=== PATIENT | male | born 1945 | race Caucasian/White ===

== ENCOUNTER 2017-03-06 15:17 | Inpatient (IN) | payer MEDICARE, MEDICAID ==
[~2017-03-06] VITALS: Ht 167.6 cm; Wt 65.8 kg
[2017-03-06] MEDS ORDERED: IV NS 0.9% 1,000 ML ONE (15:53)
[2017-03-06] MEDS ORDERED: IV SET PRIMARY 1 EA INFUS.SET MC ONE (15:53)
[2017-03-06 16:00] LABS: BASOPHILS % (AUTO) 0.4 % (0.0-2.0); EOSINOPHILS # (AUTO) 0.7 /CMM (0.0-0.7); EOSINOPHILS % (AUTO) 5.6 % (0.0-6.0); HEMATOCRIT 43 % (39-51); HEMOGLOBIN 14.4 g/dL (13.5-17.5); LYMPHOCYTES # (AUTO) 2.3 /CMM (0.8-4.8); MEAN CORPUSCULAR HEMOGLOBIN 31 PG (26.0-33.0); MEAN CORPUSCULAR HGB CONC 34 g/dl (31.0-36.0); MEAN CORPUSCULAR VOLUME 92 fL (80-96); MONOCYTES # (AUTO) 0.6 /CMM (0.1-1.30); MONOCYTES % (AUTO) 4.5 % (2.0-12.0); NEUTROPHILS # (AUTO) 8.7 /CMM (1.8-8.9); NEUTROPHILS % (AUTO) 70.5 % (43.0-81.0); PLATELET COUNT (AUTO) 342 /CMM (150-450); RED BLOOD CELL COUNT(AUTO) 4.66 MIL/uL (4.5-6.0); WHITE BLOOD COUNT (AUTO) 12.3 K/uL (4.3-11.0)
[2017-03-06] MEDS ORDERED: IV NS 0.9% 1,000 ML BAG IV ONE (16:00)
[2017-03-06] MEDS ORDERED: TAMS-12 PO (16:04)
[2017-03-06] MEDS ORDERED: ACET-868 PO (16:04)
[2017-03-06] MEDS ORDERED: DOCU-25 PO (16:04)
[2017-03-06] MEDS ORDERED: NA P133E RC (16:04)
[2017-03-06] MEDS ORDERED: BISA10SU8 RC (16:04)
[2017-03-06] MEDS ORDERED: ACET-2605 PO (16:04)
[2017-03-06] MEDS ORDERED: CARB-93 PO (16:04)
[2017-03-06] MEDS ORDERED: CRAN425C PO (16:04)
[2017-03-06] MEDS ORDERED: HYDR-552 PO (16:04)
[2017-03-06] MEDS ORDERED: GLIP10TA11 PO (16:04)
[2017-03-06] MEDS ORDERED: MAGN400O6 PO (16:04)
[2017-03-06] MEDS ORDERED: METF10002 PO (16:04)
[2017-03-06] MEDS ORDERED: LISI-603 PO (16:04)
[2017-03-06] MEDS ORDERED: INSU300I SQ (16:04)
--- NOTE | 2017-03-06 16:07 | NUR ---
PATIENT ASSIGNED TO 325-2 DX DEHYDRATION
[2017-03-06 16:10] LABS: CALCIUM, SERUM 8.5 mg/dL (8.5-10.1); CREATININE 0.8 mg/dL (0.6-1.3); POTASSIUM 3.5 mmol/L (3.5-5.1)
[2017-03-06 16:14] LABS: INR 1.05 (0.87-1.13); PROTHROMBIN TIME 10.9 SECS (9.5-12.7)
[2017-03-06 16:22] LABS: BILIRUBIN,DIRECT 0.4 mg/dL (0.0-0.2); BILIRUBIN,TOTAL 0.9 mg/dL (0.2-1.0)
[2017-03-06] MEDS ORDERED: NA PHOS,M-B/NA PHOS,DI-BA 1 EA ENEMA RC PRN (17:00)
[2017-03-06] MEDS ORDERED: ONDANSETRON HCL/PF 4 MG/2 ML VIAL IVP PRN (17:00)
[2017-03-06] MEDS ORDERED: DEXTROSE 50%-WATER 50 ML DISP.SYRIN IV PRN (17:00)
[2017-03-06] MEDS: CARBIDOPA/LEVODOPA 25/100 MG 1 UDTAB PO SCH (17:00)
[2017-03-06] MEDS ORDERED: Z GUARD REMEDY 2 OZ OINT TP PRN (17:00)
[2017-03-06] MEDS ORDERED: ACETAMINOPHEN 325 MG TABLET PO PRN (17:00)
[2017-03-06] MEDS ORDERED: BISACODYL SUPP (10 MG) 10 MG/SUPP.RECT SUPP.RECT RC PRN (17:00)
[2017-03-06] MEDS ORDERED: MAG HYDROX/AL HYDROX/SIMETH 30 ML UDC PO PRN (17:00)
[2017-03-06] MEDS ORDERED: HYDROCODONE/APAP 5/325MG 1 EACH TABLET PO PRN (17:00)
[2017-03-06] MEDS ORDERED: MAGNESIUM HYDROXIDE 30 ML UDC PO PRN (17:00)
--- NOTE | 2017-03-06 17:00 | NUR ---
RN MS NOTES RECEIVED PATIENT FROM E.R. DEPARTMENT, NON-VERBAL, UNDER THE CARE OF JULIO LEONARD, WITH ADMITTING DIAGNOSIS OF POSSIBLE PEG PLACEMENT, NEEDS ATTENDED, NO DISTRESS NOR SOB NOTED, SKIN ASSESSMENT COMPLETED, NOTED WITH SACRAL WOUND, PHOTO TAKEN AND PLACED IN CHART, PATIENT POSITIONED PROPERLY FOR COMFORT AND SAFETY, CALL LIGHT PLACED WITHIN REACH, WILL CONTINUE TO MONITOR.
[2017-03-06] MEDS ORDERED: IV SET PRIMARY PUMP SET 1 EA INFUS.SET MC ONE (17:16)
[2017-03-06] MEDS: IV NS 0.9% 1,000 ML IV PRN (17:25)
[2017-03-06] MEDS: BLOOD SUGAR DIAGNOSTIC 1 EACH STRIP IN SCH ×2 (17:26→22:19)
[2017-03-06 17:30] VITALS: BP 140/79
[2017-03-06] MEDS: INSULIN REGULAR, HUMAN 100 UNIT/ML 3 ML VIAL SQ PRN ×2 (17:49→22:28)
--- NOTE | 2017-03-06 19:40 | NUR ---
MS/RN OPENING NOTES PT RECEIVED RESTING IN BED, NON VERBAL, OPENS EYES. ON ROOM AIR, BREATHING EVEN AND UNLABORED. NO FACIAL GRIMACING OR SIGNS OF DISTRESS NOTED. WOUND CONSULT ORDERED FOR SACRAL WOUND. IV TO RAC RUNNING IVF ORDERED, NO S/S OF INFILTRATION NOTED. BED IN LOW/LOCKED POSITION, CALL LIGHT IN REACH. BED RAILS UP AND EXTREMITIES OFFLOADED .WILL CONTINUE TO MONITOR
--- NOTE | 2017-03-06 19:49 | NUR ---
RN MS NOTES HOB ELEVATED, IV HYDRATION INFUSING AT 75ML/HR, VITAL SIGNS STABLE, SACRAL WOUND CLEANSED WITH NS, PAT DRY AND APPLIED MEPILEX AT THIS TIME, RECEIVED NEW ORDERS FROM [facility], ALL ORDERS NOTED AND CARRIED OUT,WILL ENDORSE TO APARTMENT LEASING CONSULTANT FOR VENKATESH.
[2017-03-06 20:00] VITALS: BP 124/84
[2017-03-06] MEDS ORDERED: FEE PK DOSING 1 MIN EA MC ONE (20:16)
[2017-03-06] MEDS: TAMSULOSIN 0.4 MG CAP.SR.24H PO SCH (22:00)
[2017-03-06] MEDS: DOCUSATE SODIUM 100 MG CAPSULE PO SCH (22:00)
[2017-03-06] MEDS: VANCOMYCIN 1 GM in IV D5W 250 ML IV SCH (22:19)
[2017-03-06] MEDS ORDERED: SECONDARY IV SET 1 EA INFUS.SET MC ONE (22:20)
--- NOTE | 2017-03-06 22:27 | NUR ---
MS/RN NOTES BLOOD BXKTI=[id number], NO INSULIN ADMINISTERED. PT IS NPO
[2017-03-07] MEDS ORDERED: SECONDARY IV SET 1 EA INFUS.SET MC ONE ×2 (00:49→13:17)
[2017-03-07] MEDS: PIPERACILLIN /TAZOBACTAM 3.375 G in IV D5W 50 ML IV SCH ×4 (00:54→20:00)
--- NOTE | 2017-03-07 02:48 | NUR ---
MS/RN NOTES WOUND CULTURE COLLECTED FROM [facility]. CALLED LAB TO ELECTRICIAN MAINTENANCE SPECIMEN
[2017-03-07] MEDS: BLOOD SUGAR DIAGNOSTIC 1 EACH STRIP IN SCH ×4 (07:02→21:37)
[2017-03-07] MEDS: PANTOPRAZOLE 40 MG TABLET.DR PO SCH (07:02)
--- NOTE | 2017-03-07 07:05 | NUR ---
MS/RN NOTES BLOOD EGERO=572, NO INSULIN ADMINISTERED. PT IS NPO STATUS.
--- NOTE | 2017-03-07 07:30 | NUR ---
MS/RN OPENING NOTE PT. IS IN BED, SLEEPING. PT. OPENS EYES TO LIGHT TOUCH, IS NON-VERBAL. PT. HAS NO S/S OF DISTRESS, OR SOB. PT. IS IN STABLE CONDITION, NO S/S OF DISTRESS. PT. HAS A RIGHT ANTECUBITAL IV ACCESS WITH IV FLUIDS INFUSING AT 75ML/HR. BED IS IN LOW POSITION, 2 SIDE RAILS UP, AND WILL CONTINUE TO MONITOR PT.
--- NOTE | 2017-03-07 07:40 | NUR ---
MS/RN CLOSING NOTES PT REMAINS NON VERBAL, OPENS EYES. ON ROOM AIR, BREATHING EVEN AND UNLABORED. NO FACIAL GRIMACING OR SIGNS OF DISTRESS NOTED. SACRAL WOUND CULTURE COLLECTED. IV TO RAC RUNNING IVF ORDERED, NO S/S OF INFILTRATION NOTED. PT'S LOWER EXTREMITIES REMAIN CONTRACTED. NO PO PM MEDICATIONS ADMINISTERED DUE TO NPO STATUS. TURNED/REPOSITIONED PT Q2H, OFFLOADED. BED IN LOW/LOCKED POSITION, CALL LIGHT IN REACH. BED RAILS UP. KCI MATTRESS NEEDED. ENDORSED TO AM SHIFT VENKATESH.
[2017-03-07 07:42] LABS: BASOPHILS % (AUTO) 0.3 % (0.0-2.0); EOSINOPHILS # (AUTO) 0.8 /CMM (0.0-0.7); EOSINOPHILS % (AUTO) 6.8 % (0.0-6.0); HEMATOCRIT 39 % (39-51); HEMOGLOBIN 13.6 g/dL (13.5-17.5); LYMPHOCYTES # (AUTO) 1.8 /CMM (0.8-4.8); LYMPHOCYTES % (AUTO) 15.3 % (20.0-44.0); MEAN CORPUSCULAR HEMOGLOBIN 31 PG (26.0-33.0); MEAN CORPUSCULAR HGB CONC 34 g/dl (31.0-36.0); MEAN CORPUSCULAR VOLUME 91 fL (80-96); MONOCYTES # (AUTO) 0.8 /CMM (0.1-1.30); MONOCYTES % (AUTO) 6.7 % (2.0-12.0); NEUTROPHILS # (AUTO) 8.3 /CMM (1.8-8.9); NEUTROPHILS % (AUTO) 70.9 % (43.0-81.0); PLATELET COUNT (AUTO) 322 /CMM (150-450); RED BLOOD CELL COUNT(AUTO) 4.32 MIL/uL (4.5-6.0); WHITE BLOOD COUNT (AUTO) 11.7 K/uL (4.3-11.0)
[2017-03-07 07:54] LABS: CALCIUM, SERUM 8.2 mg/dL (8.5-10.1); CREATININE 0.7 mg/dL (0.6-1.3); MAGNESIUM 1.5 mg/dL (1.8-2.4); PHOSPHORUS 3.2 mg/dL (2.5-4.9)
[2017-03-07 08:00] VITALS: BP 118/67
[2017-03-07 08:00] LABS: THYROID STIMULATING HORMONE 1.091 uIU/mL (0.358-3.74)
[2017-03-07] MEDS: VANCOMYCIN 1 GM in IV D5W 250 ML IV SCH ×2 (08:49→21:24)
[2017-03-07] MEDS: LISINOPRIL (20MG) 20 MG TABLET PO SCH (08:51)
[2017-03-07] MEDS: CARBIDOPA/LEVODOPA 25/100 MG 1 UDTAB PO SCH ×3 (08:51→17:00)
[2017-03-07] MEDS ORDERED: [UNRECOGNIZED DRUG - OTHER] SQ SCH (09:00)
[2017-03-07] MEDS ORDERED: INSULIN GLARGINE HUM REC ANLOG 10 UNIT SQ SCH (09:00)
--- NOTE | 2017-03-07 10:45 | NUR ---
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 PT INCONTINENT. FIRST STEP MATTRESS ORDERED. ALL SKIN PROTECTION AND WOUND RECOMMENDATIONS DISCUSSED WITH NURSING STAFF. SURGICAL CONSULT CALLED BY . WILL SEE PRN. TEE IN AGREEMENT WITH PLAN OF CARE. Addendum: 03/07/17 at 1047 by YARON KO WNDNU Amended: Links added.
[2017-03-07] MEDS ORDERED: HYDROGEL DRESSING 90 GM TUBE TP PRN (11:00)
[2017-03-07] MEDS: INSULIN REGULAR, HUMAN 100 UNIT/ML 3 ML VIAL SQ PRN (12:51)
--- NOTE | 2017-03-07 12:52 | NUR ---
KORY 187 HELD INSULIN PT. IS NPO AT THIS TIME.
[2017-03-07] MEDS: HYDROGEL DRESSING 90 GM TUBE TP SCH (12:54)
[2017-03-07] MEDS ORDERED: IV SET PRIMARY PUMP SET 1 EA INFUS.SET MC ONE ×2 (13:33→14:10)
[2017-03-07] MEDS: POTASSIUM CL. PREMIX PERIPHER. 50 ML IV SCH ×6 (14:08→22:37)
[2017-03-07] MEDS: Magnesium 1GM/D5W 100ML PREMIX 100 ML IV SCH ×2 (14:19→15:31)
[2017-03-07 16:00] VITALS: BP 118/71
[2017-03-07] MEDS: LACTOBACILLUS RHAMNOSUS GG 1 EACH CAP.SPRINK GT SCH (17:00)
--- NOTE | 2017-03-07 18:00 | NUR ---
MS/RN BLOOD SUGAR AT 1200 WAS 187, AND AT 1800, 207. INSULIN WAS HELD DUE TO PT. BEING ON NPO.
--- NOTE | 2017-03-07 19:35 | NUR ---
RN OPEN NOTES PER LUIS DUQUE L/M FOR CONSENT FOR AM PROCEDURE AND AWAITING CALL BACK. RECEIVED PATIENT AWAKE IN BED. PT IS NON-VERBAL WITH EYE OPENING. NO SIGNS OF DISTRESS OR DISCOMFORT. BREATHING EVEN AND UNLABORED. IV ACCESS RAC AND L WRIST WITH KCL CURRENTLY INFUSING, PATENT AND INTACT, NO SIGNS OF REDNESS OR INFILTRATION. BED IN LOW LOCKED POSITION WITH SIDE RAILS X2. CALL LIGHT WITHIN REACH. WILL CONTINUE TO MONITOR.
--- NOTE | 2017-03-07 19:40 | NUR ---
MS/RN CLOSING NOTE PT. IS IN BED AWAKE. NO S/S OF DISTRESS, NO SOB, BREATHING IS EVEN AND UNLABORED, IN STABLE CONDITION. PT. BED IS IN LOW POSITION, 2 SIDE RAILS UP. LEFT MESSAGE FOR GUILHERME WITH [address] [place] [address] CALL BACK NUMBER IN REGARDS TO A CONSENT FOR WOUND DEBRIDEMENT AND EDG WITH JPEG PLACEMENT. WILL ENDORSE REPORT TO SERVICE STATION ATTENDANT NURSE REGARDING PT. CONSENT FORMS, AND LONG ACTING INSULIN TOUJEO.
[2017-03-07 20:00] VITALS: BP 138/77
--- NOTE | 2017-03-07 21:00 | NUR ---
RN NOTES L/M FOR GUILHERME AT [phone] REGARDING CONSENT FOR EGD WITH PEG PLACEMENT AND SACRAL WOUND DEBRIDEMENT. WILL CONTINUE TO MONITOR.
[2017-03-07] MEDS: DOCUSATE SODIUM 100 MG CAPSULE PO SCH (22:00)
[2017-03-07] MEDS: TAMSULOSIN 0.4 MG CAP.SR.24H PO SCH (22:00)
--- NOTE | 2017-03-07 22:30 | NUR ---
RN NOTES L/M FOR GUILHERME AT [phone], REGRADING CONSENT FOR PROCEDURE, ANESTHESIA AND BLOOD PRODUCTS FOR SCHEDULED AM PROCEDURES. WILL CONTINUE TO MONITOR.
[2017-03-07] MEDS: IV NS 0.9% 1,000 ML IV PRN (22:43)
--- NOTE | 2017-03-08 | NUR ---
RN NOTES NOTIFIED HAND CROWN POUNCER MD THAT IM UNABLE TO OBTAIN CONSENT FOR EGD WITH PEG PLACEMENT PROCEDURE SCHEDULED FOR TOMORROW AM AFTER SEVERAL ATTEMPTS, PER MD HE DOES NOT FEEL COMFORTABLE SIGNING CONSENT IT IS TO BE SIGNED BY THE MD DOING ROUNDS IN THE AM.
[2017-03-08] MEDS: PIPERACILLIN /TAZOBACTAM 3.375 G in IV D5W 50 ML IV SCH ×4 (00:56→19:09)
--- NOTE | 2017-03-08 06:50 | NUR ---
RN NOTES SPOKE WITH JOANNE IN OR, INFORMED CONSENT IS NOT SIGNED FOR PROCEDURE THIS AM. WILL CONTINUE TO MONITOR.
--- NOTE | 2017-03-08 07:15 | NUR ---
RN NOTES DR. MONTENEGRO IN TO SEE PATIENT, AWARE CONSENT HAS NOT BEEN SIGNED FOR PROCEDURE. PATIENT RESTING IN BED. NO SIGNS OR SYMPTOMS OF DISTRESS. BREATHING EVEN AND UNLABORED. IV ACCESS IN L WRIST, PATENT AND INTACT, NO SIGNS OF REDNESS OR INFILTRATION. ALL NEEDS MET. NO SIGNIFICANT CHANGES THROUGH THE NIGHT. REPOSITIONED Q2H. BED IN LOW LOCKED POSITION WITH SIDE RAILS X2. CALL LIGHT WITHIN REACH. WILL ENDORSE TO AM SHIFT FOR VENKATESH.
[2017-03-08] MEDS: PANTOPRAZOLE 40 MG TABLET.DR PO SCH (07:30)
[2017-03-08] MEDS: BLOOD SUGAR DIAGNOSTIC 1 EACH STRIP IN SCH ×4 (07:30→22:12)
--- NOTE | 2017-03-08 07:30 | NUR ---
MS RN RECEIVED ON BED, NONVERBAL PATIENT. NOT IN ANY FORM OF DISTRESS, RESPIRATIONS EVEN AND UNLABORED,NO SOB NOTED, RECEIVED W/O CONSENT FOR EGD W/ PEG PLACEMENT, WILL FOLLOW UP.
--- NOTE | 2017-03-08 07:40 | NUR ---
MS RN OR NURSE JOANNE, CALLED FOR CONSENT, WILL CONTACT NEXT OF KIN.
[2017-03-08 08:00] VITALS: BP 121/70
--- NOTE | 2017-03-08 08:00 | NUR ---
MS RN CALLED NEXT OF KIN, NOBODY ANSWER, LEFT MESSAGE TO CALL BACK.
--- NOTE | 2017-03-08 08:40 | NUR ---
MS RN CALLED SNF, WAS ABLE TO TALK W/ MEDICAL RECORDS,THEY ONLY HAVE WHAT'S IN THE CHART, NO OTHER NEXT OF KIN, AWARE.
[2017-03-08 08:54] LABS: CREATININE 0.7 mg/dL (0.6-1.3); MAGNESIUM 1.7 mg/dL (1.8-2.4); POTASSIUM 3.7 mmol/L (3.5-5.1)
[2017-03-08] MEDS: LACTOBACILLUS RHAMNOSUS GG 1 EACH CAP.SPRINK GT SCH ×2 (09:00→16:57)
[2017-03-08] MEDS: LISINOPRIL (20MG) 20 MG TABLET PO SCH (09:00)
[2017-03-08] MEDS: CARBIDOPA/LEVODOPA 25/100 MG 1 UDTAB PO SCH ×3 (09:00→17:00)
[2017-03-08] MEDS: VANCOMYCIN 1 GM in IV D5W 250 ML IV SCH ×2 (09:45→22:12)
--- NOTE | 2017-03-08 10:20 | NUR ---
MS LUIS HASTINGS CAME TO SEE PATIENT , LEFT MESSAGE ALSO TO THE NEXT OF KIN INDICATED IN THE CHART, BUT NEVER CALLED BACK.
[2017-03-08] MEDS: INSULIN DETEMIR 100 UNIT/ML CARTRIDGE SQ SCH (10:30)
[2017-03-08] MEDS: Magnesium 1GM/D5W 100ML PREMIX 100 ML IV SCH ×4 (12:22→18:22)
--- NOTE | 2017-03-08 12:30 | NUR ---
MS RN BS - 246 - DID NOT GIVE COVERAGE, PATIENT IS NOT EATING AT ALL.
[2017-03-08 16:00] VITALS: BP 111/66
[2017-03-08] MEDS: ENOXAPARIN SODIUM 30 MG/0.3 ML DISP.SYRIN SQ SCH ×2 (16:00→17:05)
[2017-03-08] MEDS ORDERED: SECONDARY IV SET 1 EA INFUS.SET MC ONE ×2 (16:51→22:12)
[2017-03-08] MEDS: HYDROGEL DRESSING 90 GM TUBE TP SCH (17:13)
[2017-03-08] MEDS: IV NS 0.9% 1,000 ML IV PRN (17:30)
--- NOTE | 2017-03-08 17:30 | NUR ---
MS RN BS - 217 - DID NOT GAVE COVERAGE, NOT EATING CHARGE NURSE IS AWARE.
--- NOTE | 2017-03-08 18:30 | NUR ---
MS RN PATIENT ON BED, NO DISTRESS NOTED.
--- NOTE | 2017-03-08 19:30 | NUR ---
RN NOTES RECEIVED PT. AWAKE, NON-VERBAL, IV FLUID RUNNING @ 75ML/HR, NO PAIN NOTED, NO SOB, SIDERAILS UPX2 CONTINUE TO MONITOR
[2017-03-08 20:00] VITALS: BP 131/83
--- NOTE | 2017-03-08 21:00 | NUR ---
RN NOTES CALLED PT. FAMILY TO GET A CONSENT- NOBODY ANSWERING THE PHONE
[2017-03-08] MEDS: DOCUSATE SODIUM 100 MG CAPSULE PO SCH (22:00)
[2017-03-08] MEDS: TAMSULOSIN 0.4 MG CAP.SR.24H PO SCH (22:00)
--- NOTE | 2017-03-08 22:00 | NUR ---
RN NOTES BLOOD SUGAR-221; NO COVERAGE GIVEN PT. IS NPO
[2017-03-09] MEDS: PIPERACILLIN /TAZOBACTAM 3.375 G in IV D5W 50 ML IV SCH ×5 (00:41→23:25)
--- NOTE | 2017-03-09 06:32 | NUR ---
RN NOTES MORNING CARE RENDERED, NO PAIN NOTED, NO SOB, SIDERAILS UPX2 PT. NEEDS ATTENDED. ENDORSED TO DAYSHIFT NURSE FOR CONTINUITY OF CARE
--- NOTE | 2017-03-09 07:25 | NUR ---
MS RN OPENING NOTES RECEIVED PT. FROM DAY SHIFT NURSE IN STABLE CONDITION. PT. IS NON VERBAL. IV ON LEFT WRIST INTACT AND PATENT RUNNING NS @ 75ML. PT. TOLERATING INFUSION WELL. NO SOB OR SIGNS OF DISTRESS NOTED. WILL CONTINUE TO MONITOR.
[2017-03-09] MEDS: PANTOPRAZOLE 40 MG TABLET.DR PO SCH (07:30)
[2017-03-09 08:00] VITALS: BP 111/71
[2017-03-09 08:20] LABS: BASOPHILS % (AUTO) 0.3 % (0.0-2.0); EOSINOPHILS # (AUTO) 0.4 /CMM (0.0-0.7); EOSINOPHILS % (AUTO) 3.4 % (0.0-6.0); HEMATOCRIT 40 % (39-51); HEMOGLOBIN 13.4 g/dL (13.5-17.5); LYMPHOCYTES # (AUTO) 1.3 /CMM (0.8-4.8); LYMPHOCYTES % (AUTO) 12.7 % (20.0-44.0); MEAN CORPUSCULAR HEMOGLOBIN 31 PG (26.0-33.0); MEAN CORPUSCULAR HGB CONC 34 g/dl (31.0-36.0); MEAN CORPUSCULAR VOLUME 92 fL (80-96); NEUTROPHILS # (AUTO) 7.8 /CMM (1.8-8.9); NEUTROPHILS % (AUTO) 74.6 % (43.0-81.0); PLATELET COUNT (AUTO) 279 /CMM (150-450); RDW COEFFICIENT OF VARIATION 13.2 (11.5-15.0); RED BLOOD CELL COUNT(AUTO) 4.29 MIL/uL (4.5-6.0); WHITE BLOOD COUNT (AUTO) 10.5 K/uL (4.3-11.0)
[2017-03-09 08:48] LABS: CALCIUM, SERUM 8.1 mg/dL (8.5-10.1); CREATININE 1.3 mg/dL (0.6-1.3); MAGNESIUM 2.1 mg/dL (1.8-2.4); PHOSPHORUS 3.3 mg/dL (2.5-4.9); POTASSIUM 3.6 mmol/L (3.5-5.1)
[2017-03-09] MEDS: INSULIN DETEMIR 100 UNIT/ML CARTRIDGE SQ SCH (09:00)
[2017-03-09] MEDS: CARBIDOPA/LEVODOPA 25/100 MG 1 UDTAB PO SCH ×3 (09:00→16:38)
[2017-03-09] MEDS: LISINOPRIL (20MG) 20 MG TABLET PO SCH (09:00)
[2017-03-09] MEDS: LACTOBACILLUS RHAMNOSUS GG 1 EACH CAP.SPRINK GT SCH ×2 (09:00→16:38)
[2017-03-09] MEDS: BLOOD SUGAR DIAGNOSTIC 1 EACH STRIP IN SCH ×4 (09:38→21:28)
[2017-03-09] MEDS: HYDROGEL DRESSING 90 GM TUBE TP SCH (09:41)
[2017-03-09] MEDS: VANCOMYCIN 1 GM in IV D5W 250 ML IV SCH (09:49)
--- NOTE | 2017-03-09 11:01 | NUR ---
JOSE contacted [facility] and spoke to the facility social problems specialist Angela inquiring if pt. has any family that has been visiting him and a phone number. JOSE Miller informed JOSE that the only friend that was visiting pt. was Ania Yadav and she hasn't visited with him in a long time. JOSE called Ania Yadav and left her a voicemail message requesting a call back.
--- NOTE | 2017-03-09 12:25 | NUR ---
MS RN NOTES GUILHERME SILVERIO (SERGING MACHINE OPERATOR) WAS CONTACTED IN REGARDS TO CONSENT FOR PEG TUBE PLACEMENT. A VOICEMAIL WAS LEFT ASKING THE SHE RETURN MY CALL. DR. MAGAN HASTINGS WAS MADE AWARE OF THIS AND STATES THAT HE WILL CONTINUE TO WORK ON THE CASE
[2017-03-09 16:00] VITALS: BP 133/80
[2017-03-09] MEDS: ENOXAPARIN SODIUM 30 MG/0.3 ML DISP.SYRIN SQ SCH (16:38)
[2017-03-09] MEDS: IV NS 0.9% 1,000 ML IV PRN (17:34)
--- NOTE | 2017-03-09 18:55 | NUR ---
MS RN CLOSING NOTES PT IN STABLE CONDITION. PT. IS NON VERBAL. IV ON LEFT WRIST INTACT AND PATENT RUNNING NS @ 75ML. PT. TOLERATING INFUSION WELL. NO SOB OR SIGNS OF DISTRESS NOTED. ALL PT. NEEDS MET AND ORDERS CARRIED OUT APPROPRIATELY. WILL ENDORSE TO NIGHTSHIFT NURSE FOR VENKATESH
--- NOTE | 2017-03-09 19:30 | NUR ---
MS RN OPENING NOTES: PATIENT IN BED, AWAKENS SPONTANEOUSLY TO TOUCH/ NAME BEING CALLED, BUT IS NON VERBAL. ON ROOM AIR, BREATHING EVEN AND UNLABORED. BREATH SOUNDS CLEAR TO AUSCULTATION. PIV OVER R HAND G 22 INTACT AND PATENT, INFUSING WELL WITH NS RUNNING AT 75 ML/HR. MAINTAINED HOB ELEVATED. BED IN LOWEST AND LOCKED POSITION, SIDERAILS UP X3, BED ALARM ON. MAINTAINED ON NPO, PATIENT IS POSSIBLY FOR PEG TUBE PLACEMENT. WILL CONT TO MONITOR.
[2017-03-09 20:00] VITALS: BP 119/69
[2017-03-09 20:08] VITALS: BP 119/69
[2017-03-09] MEDS: VANCOMYCIN 0.75 GM in IV D5W 250 ML IV SCH (21:27)
[2017-03-09] MEDS: MUPIROCIN OINT 2% 22 GM TUBE SCH (21:27)
[2017-03-09] MEDS: TAMSULOSIN 0.4 MG CAP.SR.24H PO SCH (21:29)
[2017-03-09] MEDS: DOCUSATE SODIUM 100 MG CAPSULE PO SCH (21:29)
[2017-03-09] MEDS: INSULIN REGULAR, HUMAN 100 UNIT/ML 3 ML VIAL SQ PRN (21:31)
[2017-03-09 22:00] VITALS: BP 119/69
--- NOTE | 2017-03-09 22:30 | NUR ---
RN NOTES: PATIENT'S BLOOD SUGAR CHECKED AT 201 MG/DL, NO INSULIN COVERAGE GIVEN PATIENT IS NPO. WILL CONT TO MONITOR.
[2017-03-10] MEDS: PIPERACILLIN /TAZOBACTAM 3.375 G in IV D5W 50 ML IV SCH ×2 (05:45→13:01)
[2017-03-10] MEDS: INSULIN REGULAR, HUMAN 100 UNIT/ML 3 ML VIAL SQ PRN ×2 (06:48→21:46)
[2017-03-10] MEDS: BLOOD SUGAR DIAGNOSTIC 1 EACH STRIP IN SCH ×4 (06:48→21:43)
--- NOTE | 2017-03-10 07:26 | NUR ---
MS RN CLOSING NOTES: PATIENT IN BED, AWAKE, NON VERBAL, OPENS EYES SPONTANEOUSLY TO NAME BEING CALLED. BLOOD USGAR CHECEKED AT 194 MG/DL, PT IS ON NPO, NO INSULIN COVERAGE GIVEN. PIV OVER R HAND G 22 INTACT AND PATENT, INFUSING WELL WITH NS RUNNING AT 75 ML/HR. DUE MEDS GIVEN. TURNED ANND REPOSITIONED PATIENT. WOUND DRESSING DONE OVER SACRAL AREA: CLEANSED WITH NS, PATTED DRY, APPLIED HYDROGEL, AND PROTECTED WITH MEPILEX. TURNED NAD REPOSITIONED Q 2 HRS. NO ACUTE CHANGE IN CONDITION NOTED THROUGH SHIFT. PROVIDED FOR COMFORT AND SAFETY. BED IN LOWEST NAD LOCKED POSITION, SIDERAILS UP X3. WILL ENDORSE TO AM RN FOR VENKATESH.
[2017-03-10] MEDS: PANTOPRAZOLE 40 MG TABLET.DR PO SCH (07:30)
[2017-03-10 07:32] LABS: BASOPHILS # (AUTO) 0.1 /CMM (0.0-0.2); BASOPHILS % (AUTO) 0.6 % (0.0-2.0); EOSINOPHILS # (AUTO) 0.6 /CMM (0.0-0.7); EOSINOPHILS % (AUTO) 5.9 % (0.0-6.0); HEMATOCRIT 38 % (39-51); HEMOGLOBIN 12.8 g/dL (13.5-17.5); LYMPHOCYTES # (AUTO) 1.8 /CMM (0.8-4.8); LYMPHOCYTES % (AUTO) 19.4 % (20.0-44.0); MEAN CORPUSCULAR HEMOGLOBIN 31 PG (26.0-33.0); MEAN CORPUSCULAR HGB CONC 34 g/dl (31.0-36.0); MEAN CORPUSCULAR VOLUME 91 fL (80-96); MONOCYTES # (AUTO) 0.7 /CMM (0.1-1.30); MONOCYTES % (AUTO) 7.2 % (2.0-12.0); NEUTROPHILS # (AUTO) 6.4 /CMM (1.8-8.9); NEUTROPHILS % (AUTO) 66.9 % (43.0-81.0); PLATELET COUNT (AUTO) 275 /CMM (150-450); RED BLOOD CELL COUNT(AUTO) 4.13 MIL/uL (4.5-6.0); WHITE BLOOD COUNT (AUTO) 9.5 K/uL (4.3-11.0)
[2017-03-10 08:00] VITALS: BP 129/70
[2017-03-10 08:00] LABS: CALCIUM, SERUM 8.1 mg/dL (8.5-10.1); CREATININE 1.3 mg/dL (0.6-1.3); POTASSIUM 3.4 mmol/L (3.5-5.1)
[2017-03-10] MEDS: CARBIDOPA/LEVODOPA 25/100 MG 1 UDTAB PO SCH ×3 (09:00→16:36)
[2017-03-10] MEDS: INSULIN DETEMIR 100 UNIT/ML CARTRIDGE SQ SCH (09:00)
[2017-03-10] MEDS: LACTOBACILLUS RHAMNOSUS GG 1 EACH CAP.SPRINK GT SCH ×2 (09:00→16:36)
[2017-03-10] MEDS: LISINOPRIL (20MG) 20 MG TABLET PO SCH (09:00)
[2017-03-10] MEDS: MUPIROCIN OINT 2% 22 GM TUBE SCH ×2 (09:05→21:43)
[2017-03-10] MEDS: HYDROGEL DRESSING 90 GM TUBE TP SCH (09:06)
[2017-03-10] MEDS: VANCOMYCIN 0.75 GM in IV D5W 250 ML IV SCH (09:15)
[2017-03-10] MEDS ORDERED: SECONDARY IV SET 1 EA INFUS.SET MC ONE ×2 (12:55→21:44)
[2017-03-10] MEDS ORDERED: IV SET PRIMARY PUMP SET 1 EA INFUS.SET MC ONE (14:33)
[2017-03-10] MEDS: IV 1/2NS 1000 ML 1,000 ML IV PRN (14:44)
[2017-03-10] MEDS: POTASSIUM CL. PREMIX PERIPHER. 50 ML IV SCH ×2 (14:44→15:53)
[2017-03-10 16:00] VITALS: BP 129/77
[2017-03-10] MEDS: ENOXAPARIN SODIUM 30 MG/0.3 ML DISP.SYRIN SQ SCH (16:22)
[2017-03-10] MEDS ORDERED: LEVOFLOXACIN (500MG) 500 MG TABLET PO SCH (17:00)
[2017-03-10] MEDS: ACIDOPHILUS/BULGARICUS 1 EACH TAB.CHEW PO SCH (17:00)
--- NOTE | 2017-03-10 17:42 | NUR ---
MS RN NOTES 1700 LEVAQUIN WAS NOT ADMINISTERED BECAUSE PT. IS NPO. ELIZABETH THE LAST MODEL MAKER WAS NOTIFIED AND SAID SHE WILL CHANGE IT TO AN IV FORM.
--- NOTE | 2017-03-10 18:58 | NUR ---
MS RN CLOSING NOTES PT. IN STABLE CONDITION. RESPONDS TO TOUCH BUT IS NON VERBAL. IV ON LEFT WRIST INTACT AND PATENT RUNNING 1/2 NS @ 75ML. PT. TOLERATING INFUSION WELL. NO SOB OR SIGNS OF DISTRESS NOTED. PT. WAS TURNED AND REPOSITIONED EVERY TWO HOURS. ALL SAFETY MEASURES WERE ENFORCED AND NEEDS MET. ALL ORDERS WERE CARRIED OUT ACCORDINGLY THROUGHOUT SHIFT. WILL ENDORSE TO NIGHTSHIFT NURSE FOR VENKATESH
--- NOTE | 2017-03-10 19:30 | NUR ---
RN OPENING NOTES: PATIENT IN BED, AWAKE, BUT NON VERBAL, ON ROOM AIR, BREATHING EVEN AND UNLABORED. APPEARS CALM AND IN NO APPARENT DISTRESS. PIV OVER R HAND G22 INTACT AND PATENT, INFUSING WELL WITH NS RUNNING AT 75 ML /HR. MAINTAINED ON NPO, FOR PEG TUBE PLACEMENT, PENDING. PROVIDED FOR COMFORT AND SAFETY. BED IN LOWEST AND LOCKED POSITION, SIDERAILS UP X3. BED ALARMS ON. TURNED AND REPOSITIONED. WILL CONT TO MONITOR. Addendum: 03/11/17 at 0010 by OLIVA THOMAS RN ON IVF OF 1/2 NS RUNNING AT 75 ML/HR.
[2017-03-10 20:00] VITALS: BP 130/86
[2017-03-10 20:10] VITALS: BP 130/86
--- NOTE | 2017-03-10 20:17 | NUR ---
Patient resides at [facility] [phone]. He requires assistance with adl's, plan is to d/c patient back to SNF Addendum: 03/10/17 at 2017 by MAHI MCCRACKEN RN Amended: Links added.
[2017-03-10] MEDS: DOCUSATE SODIUM 100 MG CAPSULE PO SCH (21:43)
[2017-03-10] MEDS: LEVOFLOXACIN 500 MG /D5W 100ML 500 MG in PREMIX 1 EA IV SCH (21:43)
[2017-03-10] MEDS: TAMSULOSIN 0.4 MG CAP.SR.24H PO SCH (21:43)
--- NOTE | 2017-03-10 22:00 | NUR ---
RN NOTES: PATIENT'S BLOOD SUGAR CHECKED AT 150 MG/DL. NO INSULIN GIVEN PATIENT IS NPO. WILL CONT TO MONITOR.
[2017-03-11] MEDS: IV 1/2NS 1000 ML 1,000 ML IV PRN ×2 (05:16→20:17)
[2017-03-11] MEDS: BLOOD SUGAR DIAGNOSTIC 1 EACH STRIP IN SCH ×4 (06:39→21:15)
[2017-03-11] MEDS: INSULIN REGULAR, HUMAN 100 UNIT/ML 3 ML VIAL SQ PRN (06:40)
--- NOTE | 2017-03-11 07:00 | NUR ---
MS RN CLOSING NOTES: PATIENT IN BED, AWAKE, BUT NON VERBAL. ON ROOM AIR, BREATHING EVEN AND UNLABORED. APPEARS CALM AND IN NO DISTRESS. MAINTAINED ON NPO. PIV OVER R HAND G22 INTACT AND PATENT, INFUSING WELL WITH 1/2 NS RUNNING AT 75 ML/HR. DUE MEDS GIVEN. TURNED AND REPOSITIONED. MORNING CARE RENDERED. WOUND CARE DONE OVER SACRAL WOUND. NO ACUTE CHANGE IN CONDITION NOTED THROUGH SHIFT. PROVIDED FOR COMFORT AND SAFETY. BED IN LOWEST NAD LOCKED POSITION, SIDERAILS UP X3. WILL ENDORSE TO AM RN FOR VENKATESH.
[2017-03-11] MEDS: PANTOPRAZOLE 40 MG TABLET.DR PO SCH (07:30)
[2017-03-11 08:00] VITALS: BP 143/81
[2017-03-11 08:10] LABS: BASOPHILS % (AUTO) 0.6 % (0.0-2.0); EOSINOPHILS # (AUTO) 0.4 /CMM (0.0-0.7); EOSINOPHILS % (AUTO) 5.4 % (0.0-6.0); HEMATOCRIT 38 % (39-51); HEMOGLOBIN 12.7 g/dL (13.5-17.5); LYMPHOCYTES # (AUTO) 1.6 /CMM (0.8-4.8); LYMPHOCYTES % (AUTO) 19.3 % (20.0-44.0); MEAN CORPUSCULAR HEMOGLOBIN 31 PG (26.0-33.0); MEAN CORPUSCULAR HGB CONC 34 g/dl (31.0-36.0); MEAN CORPUSCULAR VOLUME 91 fL (80-96); MONOCYTES # (AUTO) 0.5 /CMM (0.1-1.30); MONOCYTES % (AUTO) 6.3 % (2.0-12.0); NEUTROPHILS # (AUTO) 5.6 /CMM (1.8-8.9); NEUTROPHILS % (AUTO) 68.4 % (43.0-81.0); PLATELET COUNT (AUTO) 289 /CMM (150-450); RDW COEFFICIENT OF VARIATION 13.3 (11.5-15.0); RED BLOOD CELL COUNT(AUTO) 4.15 MIL/uL (4.5-6.0); WHITE BLOOD COUNT (AUTO) 8.2 K/uL (4.3-11.0)
[2017-03-11 08:28] LABS: CALCIUM, SERUM 8.4 mg/dL (8.5-10.1); CREATININE 1.1 mg/dL (0.6-1.3); MAGNESIUM 1.7 mg/dL (1.8-2.4); PHOSPHORUS 2.6 mg/dL (2.5-4.9); POTASSIUM 3.6 mmol/L (3.5-5.1)
[2017-03-11] MEDS: LISINOPRIL (20MG) 20 MG TABLET PO SCH (09:00)
[2017-03-11] MEDS: CARBIDOPA/LEVODOPA 25/100 MG 1 UDTAB PO SCH ×3 (09:00→16:48)
[2017-03-11] MEDS: INSULIN DETEMIR 100 UNIT/ML CARTRIDGE SQ SCH (09:00)
[2017-03-11] MEDS: ACIDOPHILUS/BULGARICUS 1 EACH TAB.CHEW PO SCH ×3 (09:00→16:48)
--- NOTE | 2017-03-11 09:00 | NUR ---
RECEIVED PATIENT IN THE ROOM, PATIENT AWAKE, CONFUSED, UNABLE TO VERBALIZE.PT HAS NO RESPIRATORY DISTRESS, V/S STABLE, PT NPO, NEEDS ATTENDED AND ANTICIPATED, ASSIST TURN AND REPOSITION Q2 HR, CALL LIGHT WITHIN TO REACH, PT INCONTINENT. ALS PT MRSA OF NARES, AND MRSA OF WOUND. SAFETY PRECAUTION MAINTAINED ALL THE TIME.
[2017-03-11] MEDS: HYDROGEL DRESSING 90 GM TUBE TP SCH (10:50)
[2017-03-11] MEDS: MUPIROCIN OINT 2% 22 GM TUBE SCH ×2 (10:50→20:43)
[2017-03-11] MEDS: Magnesium 1GM/D5W 100ML PREMIX 100 ML IV SCH ×2 (11:41→13:06)
--- NOTE | 2017-03-11 13:00 | NUR ---
PT HAS NO RESPIRATORY / ACUTE DISTRESS AT THIS TIME , IV RUNNING NS75ML/HI, INTACT, ASSIST TURN AND REPOSITION Q2 HR, SAFETY PRECAUTION MAINTAINED ALL THE TIME,
[2017-03-11 16:00] VITALS: BP 126/74
[2017-03-11] MEDS: ENOXAPARIN SODIUM 30 MG/0.3 ML DISP.SYRIN SQ SCH (16:51)
--- NOTE | 2017-03-11 18:00 | NUR ---
PT STILL NPO, NO MEDICATION ADMINISTERED, BS- 151MG/DL, NO ACUTE DISTRESS, ASSIST TURN AND REPOSITION, SEEN BY DR DUVAL. PT INCONTINENT, DRESSING CHANGED, APPLIED Z-GUARD, CALL LIGHT WITHIN TO REACH, SAFETY PRECAUTION MAINTAINED ALL THE TIME, ENDORSED ONCOMING NURSE FOR CONTINUATION OF CARE.
--- NOTE | 2017-03-11 19:10 | NUR ---
MS RN OPENING NOTES: PATIENT IS IN BED AWAKE AND IS NON VERBAL. PT IS ON ROOM AIR. NO SIGNS OR SYMPTOMS OF DISTRESS NOTED. PT HAS IV ON R HAND 22G AND IS INTACT AND PATENT AND INFUSING WITH IV O.45% NS 1,000ML AT 75ML/HR. PT IS NPO. PT KEPT CLEAN, DRY, AND COMFORTABLE. CALL LIGHT WITHIN PT'S REACH. BED KEPT IN LOCKED, LOWEST POSITION, AND SIDE RAILS X2 UP. WILL CONTINUE TO MONITOR PT.
[2017-03-11 20:00] VITALS: BP 137/96
[2017-03-11] MEDS: VANCOMYCIN 0.75 GM in IV D5W 250 ML IV SCH (20:04)
[2017-03-11] MEDS ORDERED: IV SET PRIMARY 1 EA INFUS.SET MC ONE (20:09)
[2017-03-11] MEDS ORDERED: SECONDARY IV SET 1 EA INFUS.SET MC ONE (20:35)
[2017-03-11] MEDS ORDERED: IV SET PRIMARY PUMP SET 1 EA INFUS.SET MC ONE (20:35)
--- NOTE | 2017-03-11 21:17 | NUR ---
MS RN NOTES: PT'S BLOOD SUGAR WAS 198MG/DL. HELD INSULIN D/T PATIENT BEING NPO. WILL CONTINUE TO MONITOR PT.
[2017-03-11] MEDS: DOCUSATE SODIUM 100 MG CAPSULE PO SCH (22:00)
[2017-03-11] MEDS: TAMSULOSIN 0.4 MG CAP.SR.24H PO SCH (22:00)
[2017-03-11] MEDS: LEVOFLOXACIN 500 MG /D5W 100ML 500 MG in PREMIX 1 EA IV SCH (22:14)
[2017-03-12] MEDS: BLOOD SUGAR DIAGNOSTIC 1 EACH STRIP IN SCH ×4 (05:58→21:40)
[2017-03-12] MEDS: PANTOPRAZOLE 40 MG TABLET.DR PO SCH (06:32)
[2017-03-12] MEDS: INSULIN REGULAR, HUMAN 100 UNIT/ML 3 ML VIAL SQ PRN ×2 (06:33→21:49)
--- NOTE | 2017-03-12 06:39 | NUR ---
MS RN NOTES: BLOOD SUGAR THIS AM WAS 146. NO COVERAGE WAS GIVEN D/T BEING NPO. WILL CONTINUE TO MONITOR PT.
--- NOTE | 2017-03-12 07:07 | NUR ---
MS RN CLOSING NOTES: ALL NEEDS WERE ATTENDED. PT IN BED DOZING OFF INTERMITTENLY. PT IS NONVERBAL AND OPENS EYES AND RESPONDS TO TOUCH. PT IS NPO. CALL LIGHT WITHIN PT'S REACH. BED KEPT IN LOCKED, LOWEST POSITION, AND SIDE RAILS X 2 UP. PT KEPT CLEAN, DRY, AND COMFORTABLE. IV IS ON R HAND #22G AND IS PATENT AND INTACT. IV IS INFUSING WITH 1/2 NS 1,000ML AT 75ML/HR. BLOOD SUGAR THIS MORNING WAS 146. NO COVERAGE WAS GIVEN D/T PT BEING NPO. WILL ENDORSE TO AM NURSE FOR CONTINUITY OF CARE.
[2017-03-12 07:28] LABS: CALCIUM, SERUM 8.3 mg/dL (8.5-10.1); MAGNESIUM 1.9 mg/dL (1.8-2.4); POTASSIUM 3.4 mmol/L (3.5-5.1)
[2017-03-12 08:00] VITALS: BP 130/78
--- NOTE | 2017-03-12 08:00 | NUR ---
MS RN NOTES RECEIVED PATIENT A/OX1. PT IS NONVERBAL. OPENS EYES TO SPEECH AND TOUCH. IV IS INTACT AND PATENT. PT RESTING IN BED. NO S/S OF DISTRESS OR SOB NOTED. BED IS IN LOW LOCKED POSITION. PT DOES NOT HAVE ANY PAIN AT THE MOMENT PER FLACC PAIN SCALE. PT IS NPO. WILL CONTINUE TO MONITOR FOR CHANGES THROUGHOUT SHIFT.
[2017-03-12] MEDS: INSULIN DETEMIR 100 UNIT/ML CARTRIDGE SQ SCH (09:00)
[2017-03-12] MEDS: LISINOPRIL (20MG) 20 MG TABLET PO SCH (09:00)
[2017-03-12] MEDS: CARBIDOPA/LEVODOPA 25/100 MG 1 UDTAB PO SCH ×3 (09:00→17:00)
[2017-03-12] MEDS: ACIDOPHILUS/BULGARICUS 1 EACH TAB.CHEW PO SCH ×3 (09:00→17:00)
[2017-03-12] MEDS: HYDROGEL DRESSING 90 GM TUBE TP SCH (10:11)
[2017-03-12] MEDS: MUPIROCIN OINT 2% 22 GM TUBE SCH ×2 (10:11→20:35)
[2017-03-12] MEDS ORDERED: POTASSIUM CHLORIDE 20 MEQ TAB.PRT.SR PO SCH (11:30)
[2017-03-12] MEDS ORDERED: SECONDARY IV SET 1 EA INFUS.SET MC ONE (11:55)
[2017-03-12] MEDS ORDERED: IV SET PRIMARY PUMP SET 1 EA INFUS.SET MC ONE (11:55)
[2017-03-12] MEDS: POTASSIUM CL. PREMIX PERIPHER. 50 ML IV SCH ×2 (12:01→13:12)
[2017-03-12] MEDS: IV 1/2NS 1000 ML 1,000 ML IV PRN (12:02)
--- NOTE | 2017-03-12 13:00 | NUR ---
MS RN NOTES PATIENT SEEN AND EVALUATED BY DR. MAGAN HASTINGS ORDERS NOTED AND CARRIED OUT.
[2017-03-12 16:00] VITALS: BP 138/89
[2017-03-12] MEDS: ENOXAPARIN SODIUM 30 MG/0.3 ML DISP.SYRIN SQ SCH (16:55)
--- NOTE | 2017-03-12 18:48 | NUR ---
MS RN NOTES PATIENT IN BED RESTING NO SOB OR ACUTE DISTRESS NOTED. ALL DUE MEDICATIONS GIVEN. ALL NEEDS MET. PATIENT NPO STATUS WAITING FOR PEG PLACEMENT. WILL ENDORSE TO PM SHIFT VENKATESH.
--- NOTE | 2017-03-12 19:25 | NUR ---
MS RN OPENING NOTES: RECEIVED PT IN BED AWAKE WITH EYES OPEN AND NONVERBAL IN BED. PT RESPONDS TO TOUCH. NEW IV STARTED BY AM NURSES ON R ARM. IV IS PATENT AND INTACT. FLUIDS INFUSING AT 1/2 NS 1,000ML AT 75ML/HR. KEPT CLEAN, DRY, AND COMFORTABLE. BED KEPT IN LOCKED, LOWEST POSITION AND SIDE RAILS X 2 UP. CALL LIGHT WITHIN PT'S REACH. NO SIGNS OR SYMPTOMS OF DISTRESS NOTED AT THIS TIME. WILL CONTINUE TO MONITOR PT.
[2017-03-12 20:00] VITALS: BP 131/87
[2017-03-12] MEDS: VANCOMYCIN 0.75 GM in IV D5W 250 ML IV SCH (20:22)
[2017-03-12 20:59] VITALS: BP 131/87
[2017-03-12] MEDS: DOCUSATE SODIUM 100 MG CAPSULE PO SCH (21:36)
[2017-03-12] MEDS: TAMSULOSIN 0.4 MG CAP.SR.24H PO SCH (21:37)
[2017-03-12] MEDS: LEVOFLOXACIN 500 MG /D5W 100ML 500 MG in PREMIX 1 EA IV SCH (21:41)
[2017-03-13] MEDS: IV 1/2NS 1000 ML 1,000 ML IV PRN (05:28)
[2017-03-13] MEDS: BLOOD SUGAR DIAGNOSTIC 1 EACH STRIP IN SCH ×5 (06:08→23:08)
[2017-03-13] MEDS: INSULIN REGULAR, HUMAN 100 UNIT/ML 3 ML VIAL SQ PRN ×4 (06:32→23:22)
[2017-03-13] MEDS: PANTOPRAZOLE 40 MG TABLET.DR PO SCH (06:43)
--- NOTE | 2017-03-13 07:15 | NUR ---
ms rn initial notes received patient in bed, awake, head of bed elevated, no SOB or distress noted. On room air and tolerated well. IV intact and patent with IVF infusing well. patient is NPO for PEG placement. Consent not signed yet, needs bioethics for 2 medical doctor to sign the consent. Kept patient clean and comfortable in bed, call light with in patient reach, will continue to monitor accordingly.
[2017-03-13 07:54] LABS: BASOPHILS # (AUTO) 0.1 /CMM (0.0-0.2); BASOPHILS % (AUTO) 0.6 % (0.0-2.0); EOSINOPHILS # (AUTO) 0.4 /CMM (0.0-0.7); EOSINOPHILS % (AUTO) 4.4 % (0.0-6.0); HEMATOCRIT 41 % (39-51); HEMOGLOBIN 13.9 g/dL (13.5-17.5); LYMPHOCYTES # (AUTO) 1.4 /CMM (0.8-4.8); LYMPHOCYTES % (AUTO) 16.1 % (20.0-44.0); MEAN CORPUSCULAR HEMOGLOBIN 31 PG (26.0-33.0); MEAN CORPUSCULAR HGB CONC 34 g/dl (31.0-36.0); MEAN CORPUSCULAR VOLUME 91 fL (80-96); MONOCYTES # (AUTO) 0.6 /CMM (0.1-1.30); MONOCYTES % (AUTO) 7.4 % (2.0-12.0); NEUTROPHILS % (AUTO) 71.5 % (43.0-81.0); PLATELET COUNT (AUTO) 258 /CMM (150-450); RDW COEFFICIENT OF VARIATION 12.6 (11.5-15.0); RED BLOOD CELL COUNT(AUTO) 4.53 MIL/uL (4.5-6.0); WHITE BLOOD COUNT (AUTO) 8.4 K/uL (4.3-11.0)
--- NOTE | 2017-03-13 07:56 | NUR ---
MS RN CLOSING NOTES: ALL NEEDS WERE ANTICIPATED AND CARRIED OUT. PT IN BED WITH EYES OPEN AND NONVERBAL. PT WILL HAVE EYES OPEN AND REPONDS TO TOUCH. PT KEPT CLEAN, DRY, AND COMFORTABLE. IV IS ON R HAND #22G AND IS PATENT AND INTACT. FLUIDS INFUSING AT 1/2 NS 1,000ML AT 75 ML/HR. BLOOD SUGAR THIS AM WAS 150. NO COVERAGE WAS GIVEN DUE TO PT BEING NPO. CALL LIGHT WITHIN PT'S REACH. BED KEPT IN LOCKED, LOWEST POSITION, AND SIDE RAILS X 2 UP. ENDORSED TO AM NURSE FOR CONTINUITY OF CARE.
[2017-03-13 08:00] VITALS: BP 134/74
[2017-03-13 08:05] LABS: CALCIUM, SERUM 8.3 mg/dL (8.5-10.1); POTASSIUM 3.4 mmol/L (3.5-5.1)
[2017-03-13 08:16] LABS: INR 1.24 (0.87-1.13); PROTHROMBIN TIME 13.4 SECS (9.5-12.7)
[2017-03-13] MEDS: ACIDOPHILUS/BULGARICUS 1 EACH TAB.CHEW PO SCH ×3 (09:00→16:21)
[2017-03-13] MEDS: LISINOPRIL (20MG) 20 MG TABLET PO SCH (09:00)
[2017-03-13] MEDS: INSULIN DETEMIR 100 UNIT/ML CARTRIDGE SQ SCH (09:00)
[2017-03-13] MEDS: CARBIDOPA/LEVODOPA 25/100 MG 1 UDTAB PO SCH ×3 (09:00→16:21)
--- NOTE | 2017-03-13 10:00 | NUR ---
ms rn notes Dr. Moya and Dr. Campbell signed consent for PEG placement and informed Dr. Judge and made aware, due to patient responsible alliance party on the face sheet unable to contact.
[2017-03-13] MEDS ORDERED: IV SET PRIMARY PUMP SET 1 EA INFUS.SET MC ONE (10:15)
[2017-03-13] MEDS: HYDROGEL DRESSING 90 GM TUBE TP SCH (10:19)
[2017-03-13] MEDS: POTASSIUM CL. PREMIX PERIPHER. 50 ML IV SCH ×2 (10:19→11:25)
[2017-03-13] MEDS: MUPIROCIN OINT 2% 22 GM TUBE SCH ×2 (10:20→22:04)
--- NOTE | 2017-03-13 10:20 | NUR ---
ms rn notes All PO medications held due to patient is NPO. Will continue to monitor accordingly.
--- NOTE | 2017-03-13 11:50 | NUR ---
MS RN NOTES Blood sugar checked 169 no coverage due to patient is NPO. Will continue to monitor accordingly.
--- NOTE | 2017-03-13 12:00 | NUR ---
ms rn notes Patient left for surgery via bed accompanied by 2 OR nurses.
--- NOTE | 2017-03-13 12:17 | NUR ---
ms rn notes Held medication due to patient is NPO for PEG placement.
--- NOTE | 2017-03-13 13:05 | NUR ---
ms rn notes Patient came back from surgery for PEG placement. Vital signs checked and recorded and WNL. on 02 @ 2lpm via NC and tolerated well. No facial grimace or discomfort noted. On IVF LR infusing well. Per report to keep patient NPO untill 7pm. Will continue to monitor accordingly.
[2017-03-13 13:07] VITALS: BP 135/85
[2017-03-13 16:00] VITALS: BP 157/81
--- NOTE | 2017-03-13 16:21 | NUR ---
MS RN NOTES Held medication due at 5pm due to patient is s/p peg placement kept NPo until 7pm. Dr. Tim Mark came seen and examined the patient and ordered Glytrol @35cc/hr to start at 7pm. All orders carried out and noted. Will continue to monitor accordingly.
[2017-03-13] MEDS: ENOXAPARIN SODIUM 30 MG/0.3 ML DISP.SYRIN SQ SCH (16:46)
--- NOTE | 2017-03-13 16:47 | NUR ---
ms rn notes Blood sugar checked 189 no coverage given due to patient kept NPO. Will continue to monitor accordingly.
[2017-03-13] MEDS ORDERED: GLYTROL 1,000 ML BAG GT PRN (19:00)
--- NOTE | 2017-03-13 19:12 | NUR ---
ms rn closing notes All needs provided, attended, and anticipated. Kept patient clean and comfortable in bed, call light with in patient reach, will continue to monitor accordingly. Endorsed to next shift RN to continue care. Started Gt feeding @35ml/hr and tolerated well.
--- NOTE | 2017-03-13 19:29 | NUR ---
MS RN OPENING NOTES: PATIENT IN BED, AOX1, NON VERBAL, ON O2 AT 2 LPM VIA NC. BREATHING EVEN AND UNLABORED. PIV OVER R HAND G22 INTACT AND INFUSING WELL WITH 1/2 NS RUNNING AT 75 ML/HR. PATIENT HAS A NEWLY PLACED PEG TUBE, WITH FEEDING OF GLYTROL RUNNING AT 35 ML/HR. SITE OF TUBE INSERTION CLEAN AND DRY, NO SWELLING, REDNESS OR DISCHARGE NOTED. PROVIDED FOR COMFORT AND SAFETY. HOB ELEVATED. WILL CONT TO MONITOR.
[2017-03-13 20:00] VITALS: BP 159/78
[2017-03-13] MEDS: VANCOMYCIN 0.75 GM in IV D5W 250 ML IV SCH (20:58)
--- NOTE | 2017-03-13 21:10 | NUR ---
RN NOTES: PATIENT'S VANCO TROUGH AT 1900 PM : 13. ADMINISTERED VANCOMYCIN 0.75 GM IV. NOTED 20 ML RESIDUAL FROM G TUBE. PATIENT TOLERATING FEEDING WELL. BREATH SOUNDS CLEAR AT THIS TIME. MAINTAINED HOB ELEVATED.
[2017-03-13 22:00] VITALS: BP 159/78
[2017-03-13] MEDS: LEVOFLOXACIN 500 MG /D5W 100ML 500 MG in PREMIX 1 EA IV SCH (22:08)
[2017-03-13] MEDS: TAMSULOSIN 0.4 MG CAP.SR.24H PO SCH (22:09)
--- NOTE | 2017-03-13 22:36 | NUR ---
RN NOTES: SPOKE TO AISHA HANNAH: OK TO CHANGE ACCUCHECKS TO Q 6 MILD SS PT IS ON GTUBE FEEDING.
[2017-03-13] MEDS ORDERED: DEXTROSE 50%-WATER 50 ML DISP.SYRIN IV PRN (23:00)
[2017-03-13] MEDS: DOCUSATE SODIUM 100 MG CAPSULE PO SCH (23:03)
--- NOTE | 2017-03-13 23:28 | NUR ---
RN NOTES: PATIENT'S BLOOD SUGAR IS 220 MG/DL, ADMINISTERED 4 UNITS REGULAR INSULIN PER SCALE. PATIENT TOLERATING FEEDING WELL, CHECKED RESIDUAL AT ONLY 10 ML AT THIS TIME. WILL CONT TO MONITOR.
[2017-03-14 04:01] VITALS: BP 108/69
[2017-03-14] MEDS: IV 1/2NS 1000 ML 1,000 ML IV PRN (05:27)
[2017-03-14] MEDS: BLOOD SUGAR DIAGNOSTIC 1 EACH STRIP IN SCH ×3 (05:53→17:05)
[2017-03-14] MEDS: INSULIN REGULAR, HUMAN 100 UNIT/ML 3 ML VIAL SQ PRN ×3 (06:02→17:08)
--- NOTE | 2017-03-14 06:18 | NUR ---
MS RN CLOSING NOTES: PATIENT IN BED, AOX1, NON VERBAL BUT OPENS EYES SPONTANEOUSLY TO COMMAND. ON O2 AT 2 LPM VIA NC, BREATHING EVEN AND UNLABORED. BREATH SOUNDS CLEAR TO AUSCULTATION. MONITORED THROUGHOUT SHIFT FOR SIGNS OF CONGESTION, NONE NOTED. CONTINUES TO BE ON GTUBE FEEDING OF GLYTROL AT RATE OF 35 ML/HR, TOLERATING WELL. GTUBE RESIDUAL CHECKED AT 10 ML AT THIS TIME. BLOOD SUGAR CHECKED AT 0600 AM AT 175MG/DL, COVERED WITH 3 UNITS INSULIN PER MILD SS. PIV OVER R HAND G22 INTACT AND INFUSING WELL WITH 1/2 NS RUNNING AT 75 ML/HR. PROVIDED FOR COMFORT AND SAFETY. TURNED AND REPOSITIONED Q 2 HRS. WOUND CARE DONE OVER SACRAL DECUBITUS. MORNING CARE RENDERED. DUE MEDS GIVEN. WILL ENDORSE TO AM RN FOR VENKATESH.
[2017-03-14] MEDS: PANTOPRAZOLE 40 MG TABLET.DR PO SCH (07:30)
[2017-03-14 07:44] LABS: BASOPHILS # (AUTO) 0.1 /CMM (0.0-0.2); BASOPHILS % (AUTO) 0.4 % (0.0-2.0); EOSINOPHILS # (AUTO) 0.5 /CMM (0.0-0.7); HEMATOCRIT 39 % (39-51); HEMOGLOBIN 13.2 g/dL (13.5-17.5); LYMPHOCYTES # (AUTO) 1.4 /CMM (0.8-4.8); LYMPHOCYTES % (AUTO) 10.7 % (20.0-44.0); MEAN CORPUSCULAR HEMOGLOBIN 31 PG (26.0-33.0); MEAN CORPUSCULAR HGB CONC 34 g/dl (31.0-36.0); MEAN CORPUSCULAR VOLUME 92 fL (80-96); MONOCYTES # (AUTO) 0.8 /CMM (0.1-1.30); MONOCYTES % (AUTO) 6.3 % (2.0-12.0); NEUTROPHILS # (AUTO) 10.2 /CMM (1.8-8.9); NEUTROPHILS % (AUTO) 78.6 % (43.0-81.0); PLATELET COUNT (AUTO) 254 /CMM (150-450); RDW COEFFICIENT OF VARIATION 12.8 (11.5-15.0); RED BLOOD CELL COUNT(AUTO) 4.29 MIL/uL (4.5-6.0); WHITE BLOOD COUNT (AUTO) 12.9 K/uL (4.3-11.0)
--- NOTE | 2017-03-14 07:54 | NUR ---
RN INITIAL NOTE REPORT RECEIVED AT THE BEDSIDE. PATIENT IS RESTING COMFORTABLY IN BED. NO SOB OR DISTRESS NOTED AT THIS TIME. PATIENT DOES NOT APPEAR TO BE IN PAIN. GTUBE FEEDING RUNNING. BED IN A LOW POSITION, CALL LIGHT WITHIN PATIENT REACH. WILL CONTINUE TO MONITOR.
[2017-03-14 08:00] VITALS: BP 112/60
[2017-03-14 08:00] LABS: CALCIUM, SERUM 8.3 mg/dL (8.5-10.1); CREATININE 0.9 mg/dL (0.6-1.3); POTASSIUM 3.4 mmol/L (3.5-5.1)
[2017-03-14] MEDS: ACIDOPHILUS/BULGARICUS 1 EACH TAB.CHEW PO SCH ×3 (08:35→16:38)
[2017-03-14] MEDS: LISINOPRIL (20MG) 20 MG TABLET PO SCH (08:35)
[2017-03-14] MEDS: CARBIDOPA/LEVODOPA 25/100 MG 1 UDTAB PO SCH ×3 (08:35→16:38)
[2017-03-14] MEDS: INSULIN DETEMIR 100 UNIT/ML CARTRIDGE SQ SCH (08:36)
[2017-03-14] MEDS: MUPIROCIN OINT 2% 22 GM TUBE SCH (08:37)
[2017-03-14] MEDS: HYDROGEL DRESSING 90 GM TUBE TP SCH (08:38)
--- NOTE | 2017-03-14 10:56 | NUR ---
WOUND CARE CONSULT: PT SEEN FOR RT LATERAL FOOT BROWN DISCOLORED AREA WITH PURULENT DRAINAGE. PER PODIATRY NOTE, LESION WAS PRESENT ON ADMISSION PREULCERATIVE KERATOMA. RECOMMEND PROTECT WITH MEPILEX AND HAVE DPM/SURGICAL FOLLOW UP. DISCUSSED WITH NURSING STAFF. WILL SEE PRN. Addendum: 03/14/17 at 1058 by YARON KO WNDNU Amended: Links added.
--- NOTE | 2017-03-14 11:09 | NUR ---
MS RN NOTES APPLIED CONDOM CATHETER PATIENT IS URINATING A LOT AND HAS A STAGE 4 SACRUM ULCER. AISHA LEY, IS IN AGREEMENT WITH CONDOM CATH. WILL CONTINUE TO MONITOR.
[2017-03-14] MEDS ORDERED: Nut.tx.gluc.intoler,Lac-Fr,Soy GT (11:39)
[2017-03-14] MEDS ORDERED: ENOX30DI SQ (11:39)
[2017-03-14] MEDS ORDERED: VANC750F2 IV (11:39)
[2017-03-14] MEDS ORDERED: LEVO500T15 PEG (11:52)
[2017-03-14] MEDS ORDERED: SECONDARY IV SET 1 EA INFUS.SET MC ONE (12:19)
[2017-03-14] MEDS: POTASSIUM CL. PREMIX PERIPHER. 50 ML IV SCH ×2 (12:26→13:50)
[2017-03-14 16:00] VITALS: BP 98/62
--- NOTE | 2017-03-14 18:22 | NUR ---
MS RN NOTES CALLED [facility]. GAVE REPORT TO LUIS FITZGERALD. WILL ENDORSE PATIENT FOR DISCHARGE AT 2030.
--- NOTE | 2017-03-14 19:17 | NUR ---
MS RN CLOSING NOTES NO SIGNIFICANT CHANGES IN PATIENT CONDITION THROUGHOUT THE SHIFT. NO SOB OR DISTRESS NOTED AT THIS TIME. PATIENT DOES NOT APPEAR TO BE IN PAIN, NO FACIAL GRIMACE NOTED. BED IN A LOW POSITION, WILL ENDORSE FOR VENKATESH AND DISCHARGE.
--- NOTE | 2017-03-14 19:41 | NUR ---
MS BASILIO INITIAL NOTES RECEIVED REPORT FROM AM NURSE LUCIA, CHECKED PT HE'S SLEEPING AT THIS TIME WITH NO ACUTE DISTRESS NOTED, BREATHING EVEN AND NON-LABORED, STILL WITH G-TUBE FEEDING GLYTROL AT 35ML/HR NO ASPIRATION NOTED, RESIDUAL 3 ML NOTED. SKIN WARM AND DRY TO TOUCH, KEPT HIM WARM AND COMFORTABLE AT ALL TIME. WAITING FOR CUSTODIAL ENGINEER TO MEDICAL EDUCATOR THE PT [facility]CHARGE [facility]. WILL CONTINUE TO MONITOR.
[2017-03-14] MEDS: VANCOMYCIN 0.75 GM in IV D5W 250 ML IV SCH (20:08)
--- NOTE | 2017-03-14 21:06 | NUR ---
MS CHEF & OWNER CLOSING NOTES VANCOMYCIN IVP BAG FINISHED AND NO SIGNS OF ADVERSE REACTION NOTED. PT PICKED UP BY VP DESIGN WITH NO SIGNS OF ACUTE DISTRESS NOTED. G-TUBE CLAMPED AND PT WITH HEPLOCK ON HIS RIGHT WRIST PATENT AND INTACT. GAVE REPORT TO VP DESIGN WELL TO NURSE FROM [facility] LIA TO LET HER KNOW THAT PT LEFT AND VANCO GIVEN .
== END 2017-03-14 21:05 | DRG 871 ==
LOC: ER 15:19 → MED 16:42
PROVIDERS: ADMIT Contractor; ATTEND Contractor
PROC: 0DH63UZ Insertion of Feeding Device into Stomach, Percutaneous Approach (ICD-10-PCS; principal; 2017-03-13 14:30)
DX: A41.9 Sepsis, unspecified organism (principal); L89.154 Pressure ulcer of sacral region, stage 4; R53.2 Functional quadriplegia; G93.41 Metabolic encephalopathy; E44.0 Moderate protein-calorie malnutrition; R62.7 Adult failure to thrive; E86.0 Dehydration; E11.65 Type 2 diabetes mellitus with hyperglycemia; N40.0 Benign prostatic hyperplasia without lower urinary tract symptoms; G20 Parkinson's disease; D72.829 Elevated white blood cell count, unspecified; I51.7 Cardiomegaly; B35.3 Tinea pedis; E87.6 Hypokalemia; Z79.899 Other long term (current) drug therapy; E88.09 Other disorders of plasma-protein metabolism, not elsewhere classified; Z68.23 Body mass index [BMI] 23.0-23.9, adult; F02.80 Dementia in other diseases classified elsewhere, unspecified severity, without behavioral disturbance, psychotic disturbance, mood disturbance, and anxiety; L89.621 Pressure ulcer of left heel, stage 1; L89.611 Pressure ulcer of right heel, stage 1; L57.0 Actinic keratosis; I10 Essential (primary) hypertension; R13.10 Dysphagia, unspecified; M24.561 Contracture, right knee; M24.522 Contracture, left elbow; M24.521 Contracture, right elbow; Z22.322 Carrier or suspected carrier of Methicillin resistant Staphylococcus aureus; Z79.84 Long term (current) use of oral hypoglycemic drugs
CPT/HCPCS: 36415; 43246; 71010-TC; 80048-TC; 80061-TC; 80076-TC; 80202-TC; 82962-TC; 83735-TC; 84100-TC; 84443-TC; 85025-TC; 85610-TC; 85730-TC; 87040-TC; 87070-TC; 87081-TC; 87186-TC; 92526; 92611-TC; 94799-TC; A4216; A4349; A4606; A6248; A6253; A6402; A6403; J0690; J1650; J1815; J1956; J2543; J2704; J3370; J3475; J3480; J3490; J7030; J7060; Z7610